=== PATIENT | female | born 1940 | race Asian ===

== ENCOUNTER 2021-07-27 08:00 | Day surgery (SDC) | payer OTHER, MEDICAID, SELFPAY ==
[~2021-07-27] VITALS: Ht 147.3 cm; Wt 48.5 kg
[2021-07-27] MEDS ORDERED: DIPHENHYDRAMINE INJ 50 MG/ML VIAL ONE (09:18)
[2021-07-27] MEDS: MEPERIDINE 100 MG INJ. 100 MG/ML VIAL ONE ×2 (09:23→09:38)
[2021-07-27] MEDS: MIDAZOLAM HCL 5 MG/5 ML VIAL ONE ×2 (09:23→09:38)
[2021-07-27 14:14] VITALS: BP_SYST 136
== END 2021-07-27 10:35 | disposition home or self-care (01) ==
LOC: SDS 08:00 → SMU 08:01 → SDS 10:35
PROVIDERS: ATTEND Internal Medicine Gastroenterology
DX: K62.5 Hemorrhage of anus and rectum (principal); K64.8 Other hemorrhoids; I12.0 Hypertensive chronic kidney disease with stage 5 chronic kidney disease or end stage renal disease; D63.1 Anemia in chronic kidney disease; N18.6 End stage renal disease; Z99.2 Dependence on renal dialysis
CPT/HCPCS: 45378; 99152; G0378; J1200; J2175; J2250; U0003

== ENCOUNTER 2022-01-04 06:42 | Emergency (ER) | payer OTHER, MEDICAID ==
[~2022-01-04] VITALS: Ht 162.6 cm; Wt 63.5 kg
--- NOTE | 2022-01-04 06:42 | NUR ---
Patient to ER bed 2 to gown for evaluation. Side rails up.DR ACEVEDO AT BEDSIDE
[2022-01-04 06:45] VITALS: BP_SYST 183
--- NOTE | 2022-01-04 06:45 | NUR ---
Shell addison in EDM - 01/04/22 at 0701 by [email or web address] Patient to ER bed [facility] to [facility] for evaluation. Side rails up.DR ACEVEDO AT BEDSIDE.
--- NOTE | 2022-01-04 06:45 | NUR ---
PT BROUGHT IN BY EMT NOT ALERT. PT INTUBATED WITH 7.5 ETT AT 23 CM AT LIP BY MD ACEVEDO. TUBE PLACEMENT CONFRMED BY CO2 AND BILATERAL CHEST RISE, BREATH SOUNDS. TUBE IS SECURED WITH ANCHOR-FAST. PATIENTCONNECTED TO VENT WITH CHARTED SETTINGS. ALARMS AUDIBLE. VENT CONNECTED TO RED OUTLET. AMBU BAG AT BEDSIDE. SPUTUM SAMPLE COLLECTED AND SENT TO LAB. WILL CONTINUE TO MONITOR PATIENT.
[2022-01-04] MEDS ORDERED: PROPOFOL DRIP 100 ML IV ONE ×2 (06:49→07:00)
--- NOTE | 2022-01-04 06:49 | NUR ---
CODE STROKE CALLED
[2022-01-04] MEDS ORDERED: ETOMIDATE 20 MG/ 10 ML VIAL (AMIDATE) ONE (06:52)
[2022-01-04] MEDS ORDERED: SUCCINYLCHOLINE CHLORIDE 20 MG/ML(QUELICIN) ONE (06:52)
--- NOTE | 2022-01-04 06:52 | NUR ---
Patient not known to be of DNR status. Respiratory therapy at bedside prior to placement. Size 7.5 ET tube placed by Dr Rowan. Cuff inflated with 10 cc air. Auscultation of breath sounds over bilateral chest wall. ET tube secured with [place] fast. O2 sats 100% pulse ox. PCXR ordered to check tube placement.
--- NOTE | 2022-01-04 06:55 | NUR ---
PATIENT TAKEN TO CT AND BACK WITH NO INCIDENT.
--- NOTE | 2022-01-04 07:12 | NUR ---
G DONE. RESULTS GIVEN TO MD ACEVEDO. NO NEW ORDERS.
[2022-01-04 07:15] VITALS: BP_SYST 183
--- NOTE | 2022-01-04 07:23 | NUR ---
DR ACEVEDO AND MYSELF OUT TO SPEAK WITH PTS SON. INFORMATION GIVEN. SON STATES AT SOME TIME AROUND PT FELL AND BY 529 PT WAS VOMITING.
[2022-01-04] MEDS ORDERED: MANNITOL 25% 12.5GM/50 ML VIAL IVP ONE (07:30)
[2022-01-04] MEDS ORDERED: PIPERACILLIN/TAZO 3.375 GM in NS 50 ML IV ONE (07:45)
[2022-01-04] MEDS ORDERED: PIPERACILLIN/TAZOBACTAM 3.375 GM/VIAL (ZOSYN) IV ONE (07:57)
[2022-01-04] MEDS ORDERED: niCARdipine 2.5 MG/ML, 10 ML VIAL (CARDENE) IV ONE (07:58)
[2022-01-04] MEDS ORDERED: niCARdipine 25 MG in D5W 240 ML IV PRN (08:00)
[2022-01-04] MEDS ORDERED: levETIRAcetam 500 MG IV PREMIX 100 ML IV ONE (08:00)
[2022-01-04 08:05] LABS: BASOPHILS # (AUTO) 0.1 K/uL (0.0-0.2); BASOPHILS % (AUTO) 0.4 % (0.0-2.0); EOSINOPHILS # (AUTO) 1.1 K/uL (0.0-0.4); EOSINOPHILS % (AUTO) 8.1 % (0.0-4.0); HEMOGLOBIN 10.8 g/dL (12.0-16.0); LYMPHOCYTES # (AUTO) 1.1 K/uL (1.0-5.5); LYMPHOCYTES % (AUTO) 8.4 % (20.5-51.5); MEAN CORPUSCULAR HEMOGLOBIN 35 pg (27-31); MEAN CORPUSCULAR HGB CONC 33 % (32-36); MEAN CORPUSCULAR VOLUME 105 fL (79.0-98.0); MONOCYTES # (AUTO) 0.4 K/uL (0.0-1.0); MONOCYTES % (AUTO) 3.3 % (1.7-9.3); NEUTROPHILS # (AUTO) 10.4 K/uL (1.8-7.7); NEUTROPHILS % (AUTO) 79.8 % (40.0-70.0); PLATELET COUNT (AUTO) 55 K/uL (130-430); RED BLOOD CELL COUNT(AUTO) 3.13 MIL/uL (4.2-6.2); RED CELL DISTRIBUTION WIDTH 16.6 % (9.0-15.0); WHITE BLOOD COUNT (AUTO) 13.1 K/uL (4.8-10.8)
--- NOTE | 2022-01-04 08:08 | NUR ---
CALLING TO NOTIFY ALEENA YEBOAH [employer]. NO ANSWER ,LEFT VOICEMAIL
--- NOTE | 2022-01-04 08:09 | NUR ---
PROPOFOL AT 15MCG/KG/MIN RASS -2, 18G RIGHT EJ PLACED BY DR ARREOLA, BLOOD TO LAB, 16 AMOR LEONARDO PLACED URINE TO LAB. [facility] 20, CARDENE ON STAND BUY TO KEEP SBP 150 MM/HG Addendum: 01/04/22 at 0901 by [email or web address] hob at 30 degrees
--- NOTE | 2022-01-04 08:15 | NUR ---
SON STATES PT DIALYSIS M,W,F
--- NOTE | 2022-01-04 08:22 | NUR ---
ETT 7.5 AT 22CM LIP. VT 400, RATE 20 +5 5-% FIO2 AC MODE
[2022-01-04 08:23] LABS: ANION GAP 10 (5-15); CALCIUM 9.7 mg/dL (8.4-11.0); CHLORIDE 96 mmol/L (98-107); CREATININE 4.64 mg/dL (0.55-1.30); GLUCOSE 281 mg/dL (70-99); POTASSIUM 4.2 mmol/L (3.5-5.1); SODIUM SERUM 132 mmol/L (136-145); UREA NITROGEN, BLOOD 21 mg/dL (8-21)
[2022-01-04 08:29] LABS: ALANINE AMINOTRANSFERASE 38 U/L (12-78); ALBUMIN 3.7 g/dL (3.4-4.8); ASPARTATE AMINOTRANSFERASE 38 U/L (10-37); TOTAL BILIRUBIN 0.4 mg/dL (0.0-1.0)
--- NOTE | 2022-01-04 08:33 | NUR ---
report called to christi chaves at [facility]
[2022-01-04 08:50] VITALS: BP_SYST 135
--- NOTE | 2022-01-04 09:00 | NUR ---
Patient to be transferred to [][facility]. Is being transferred due to higher level of care. Receiving facility has accepting physician and available space. ER physician has signed transfer form. Patient or responsible alliance party has agreed to transfer and signed form. Patient belongings inventoried and will be sent with patient. Copy of nursing notes, lab reports, EKG, Physicians Orders and X-rays to be sent with patient. Report called to []daria chaves at receiving facility. Receiving physician is []dr grier. [facility] been called for transfer. ETA is [] now.
== END 2022-01-04 09:00 | disposition short-term general hospital (02) ==
LOC: SED 06:42
DX: S06.5X0A Traumatic subdural hemorrhage without loss of consciousness, initial encounter (principal); N18.6 End stage renal disease; Z88.2 Allergy status to sulfonamides; Z88.4 Allergy status to anesthetic agent; Z88.9 Allergy status to unspecified drugs, medicaments and biological substances; Z88.8 Allergy status to other drugs, medicaments and biological substances; Z20.822 Contact with and (suspected) exposure to COVID-19; W19.XXXA Unspecified fall, initial encounter; Y93.89 Activity, other specified; Y92.098 Other place in other non-institutional residence as the place of occurrence of the external cause; Y99.8 Other external cause status
CPT/HCPCS: 31500; 36415; 36600; 70450; 71045; 76376; 80053; 82803; 82962; 85025; 87040; 87426; 96374; 96375; 99291; J0330; J1953; J2150; J2543; J2704; J3490; 82800-TC; 94002; 94760